=== PATIENT | female | born 1945 | race Caucasian/White ===

== ENCOUNTER → 2021-08-15 | Outpatient (CLI) | payer MEDICARE ==
[~2021-08-15] VITALS: Ht 154.9 cm; Wt 91.6 kg
== END ==
LOC: EROP 14:02
DX: U07.1 COVID-19 (principal); Z23 Encounter for immunization; E66.9 Obesity, unspecified; E11.9 Type 2 diabetes mellitus without complications; J45.909 Unspecified asthma, uncomplicated; J98.4 Other disorders of lung
CPT/HCPCS: 96365

== ENCOUNTER 2021-11-08 17:59 | Inpatient (IN) | payer MEDICARE ==
[~2021-11-08] VITALS: Ht 154.9 cm; Wt 87.1 kg
[2021-11-08 21:55] LABS: HEMOGLOBIN 11.2 gm/dl (12.3-15.3); WHITE BLOOD COUNT 19.2 K/UL (4.5-11.0)
[2021-11-09] MEDS ORDERED: PAIN RELIEF650 MG PO (00:02)
[2021-11-09] MEDS ORDERED: ASPIRIN81 MG PO (00:03)
[2021-11-09] MEDS ORDERED: PROVENTIL HFA6.7 GM INH (00:03)
[2021-11-09] MEDS ORDERED: ALBUTEROL2.5 MG/3 M INH (00:03)
[2021-11-09] MEDS ORDERED: FARXIGA10 MG PO (00:04)
[2021-11-09] MEDS ORDERED: LIPITOR80 MG PO (00:04)
[2021-11-09] MEDS ORDERED: PROZAC20 MG PO (00:05)
[2021-11-09] MEDS ORDERED: FEOSOL325 MG PO (00:05)
[2021-11-09] MEDS ORDERED: DIGOX125 MCG PO (00:05)
[2021-11-09] MEDS ORDERED: ZAROXOLYN/DIUL2.5 MG PO (00:06)
[2021-11-09] MEDS ORDERED: TOPROL XL25 MG PO (00:09)
[2021-11-09] MEDS ORDERED: MEXITIL 150 MG150 MG PO (00:09)
[2021-11-09] MEDS ORDERED: DULERA 200 MCG8.8 GM INH (00:09)
[2021-11-09] MEDS ORDERED: ENTRESTO 49 MG1 EACH PO (00:10)
[2021-11-09] MEDS ORDERED: NITROSTAT0.4 MG SL (00:10)
[2021-11-09] MEDS ORDERED: GAVILAX17 GM PO (00:10)
[2021-11-09] MEDS ORDERED: OMEPRAZOLE20 MG PO (00:10)
[2021-11-09] MEDS ORDERED: JANTOVEN1 MG PO (00:11)
[2021-11-09] MEDS ORDERED: SPIRIVA RESPIMAT4 GM INH (00:11)
[2021-11-09] MEDS ORDERED: TRELEGY ELLIPT1 EACH INH (00:13)
[2021-11-09] MEDS ORDERED: ALDACTONE25 MG PO (00:23)
[2021-11-09] MEDS ORDERED: GLUCOTROL5 MG PO (00:29)
[2021-11-09] MEDS ORDERED: ALLOPURINOL300 MG PO (00:32)
[2021-11-09 09:06] LABS: HEMOGLOBIN 10.9 gm/dl (12.3-15.3); RED BLOOD COUNT 3.64 M/UL (4.00-5.10); WHITE BLOOD COUNT 16.8 K/UL (4.5-11.0)
[2021-11-10 05:50] LABS: HEMOGLOBIN 11.3 gm/dl (12.3-15.3); RED BLOOD COUNT 3.69 M/UL (4.00-5.10); WHITE BLOOD COUNT 10.5 K/UL (4.5-11.0)
[2021-11-10 15:20] LABS: HEMOGLOBIN 10.6 gm/dl (12.3-15.3); RED BLOOD COUNT 3.52 M/UL (4.00-5.10); WHITE BLOOD COUNT 13.3 K/UL (4.5-11.0)
[2021-11-11 02:02] LABS: HEMOGLOBIN 10.9 gm/dl (12.3-15.3); RED BLOOD COUNT 3.59 M/UL (4.00-5.10); WHITE BLOOD COUNT 16.2 K/UL (4.5-11.0)
[2021-11-12 05:02] LABS: HEMOGLOBIN 11.2 gm/dl (12.3-15.3); RED BLOOD COUNT 3.73 M/UL (4.00-5.10); WHITE BLOOD COUNT 12.9 K/UL (4.5-11.0)
[2021-11-13 08:23] LABS: WHITE BLOOD COUNT 12.8 K/UL (4.5-11.0)
[2021-11-13 08:24] LABS: HEMOGLOBIN 10.7 gm/dl (12.3-15.3); RED BLOOD COUNT 3.54 M/UL (4.00-5.10)
[2021-11-14 10:56] LABS: HEMOGLOBIN 10.4 gm/dl (12.3-15.3); RED BLOOD COUNT 3.39 M/UL (4.00-5.10); WHITE BLOOD COUNT 11.9 K/UL (4.5-11.0)
[2021-11-15 05:11] LABS: HEMOGLOBIN 9.6 gm/dl (12.3-15.3); RED BLOOD COUNT 3.15 M/UL (4.00-5.10); WHITE BLOOD COUNT 10.5 K/UL (4.5-11.0)
[2021-11-17 03:58] LABS: HEMOGLOBIN 9.6 gm/dl (12.3-15.3); RED BLOOD COUNT 3.12 M/UL (4.00-5.10); WHITE BLOOD COUNT 10.5 K/UL (4.5-11.0)
[2021-11-18 05:17] LABS: HEMOGLOBIN 10.3 gm/dl (12.3-15.3); RED BLOOD COUNT 3.35 M/UL (4.00-5.10); WHITE BLOOD COUNT 12.6 K/UL (4.5-11.0)
--- NOTE | 2021-11-19 03:00 | NUR ---
CHANGING BED LINEN . RECTAL TUBE OUT. NEW RECTAL TUBE INSERTED WITHOUT DIFFICULTY.
[2021-11-20 04:24] LABS: HEMOGLOBIN 10.1 gm/dl (12.3-15.3); RED BLOOD COUNT 3.29 M/UL (4.00-5.10); WHITE BLOOD COUNT 12.2 K/UL (4.5-11.0)
[2021-11-23 05:07] LABS: RED BLOOD COUNT 3.22 M/UL (4.00-5.10); WHITE BLOOD COUNT 12.9 K/UL (4.5-11.0)
[2021-11-23] MEDS ORDERED: IPRAT-ALBUT 0.5-3 ML NEB (09:53)
[2021-11-23] MEDS ORDERED: BUMETANIDE1 MG PO (09:53)
[2021-11-23] MEDS ORDERED: ATORVASTATIN CA20 MG PO (09:53)
[2021-11-23] MEDS ORDERED: LOPRESSOR 25 MG25 MG PO (09:53)
--- NOTE | 2021-11-23 13:50 | NUR ---
REPORT CALLED TO TARIQ LYNN RN AT [facility], D/C SUMMARY FAXED ON REQUEST. FAMILY WILL BE HERE TO GET PATIENT AFTER 3PM.
== END 2021-11-23 15:45 | disposition home health service (06) | DRG 871 ==
LOC: MED SURG 4 19:51 → CCU 19:51 → MED SURG 4 11-20 10:01
PROVIDERS: Internal Medicine; Internal Medicine Cardiovascular Disease; Internal Medicine Critical Care Medicine; Internal Medicine Infectious Disease; Internal Medicine Pulmonary Disease; ADMIT Internal Medicine
PROC: 3E043XZ Introduction of Vasopressor into Central Vein, Percutaneous Approach (ICD-10-PCS; principal; 2021-11-08)
PROC: 5A1945Z Respiratory Ventilation, 24-96 Consecutive Hours (ICD-10-PCS; 2021-11-08)
PROC: 3E03329 Introduction of Other Anti-infective into Peripheral Vein, Percutaneous Approach (ICD-10-PCS; 2021-11-08)
PROC: 0BH17EZ Insertion of Endotracheal Airway into Trachea, Via Natural or Artificial Opening (ICD-10-PCS; 2021-11-08)
PROC: B24BZZZ Ultrasonography of Heart with Aorta (ICD-10-PCS; 2021-11-09)
PROC: 5A09357 Assistance with Respiratory Ventilation, Less than 24 Consecutive Hours, Continuous Positive Airway Pressure (ICD-10-PCS; 2021-11-14)
PROC: 5A09357 Assistance with Respiratory Ventilation, Less than 24 Consecutive Hours, Continuous Positive Airway Pressure (ICD-10-PCS; 2021-11-15)
PROC: 5A09357 Assistance with Respiratory Ventilation, Less than 24 Consecutive Hours, Continuous Positive Airway Pressure (ICD-10-PCS; 2021-11-16)
PROC: 5A09357 Assistance with Respiratory Ventilation, Less than 24 Consecutive Hours, Continuous Positive Airway Pressure (ICD-10-PCS; 2021-11-17)
PROC: 5A09357 Assistance with Respiratory Ventilation, Less than 24 Consecutive Hours, Continuous Positive Airway Pressure (ICD-10-PCS; 2021-11-17)
PROC: 5A09357 Assistance with Respiratory Ventilation, Less than 24 Consecutive Hours, Continuous Positive Airway Pressure (ICD-10-PCS; 2021-11-18)
PROC: 5A09357 Assistance with Respiratory Ventilation, Less than 24 Consecutive Hours, Continuous Positive Airway Pressure (ICD-10-PCS; 2021-11-19)
PROC: 5A09357 Assistance with Respiratory Ventilation, Less than 24 Consecutive Hours, Continuous Positive Airway Pressure (ICD-10-PCS; 2021-11-21)
PROC: 5A09357 Assistance with Respiratory Ventilation, Less than 24 Consecutive Hours, Continuous Positive Airway Pressure (ICD-10-PCS; 2021-11-22)
PROC: 5A09357 Assistance with Respiratory Ventilation, Less than 24 Consecutive Hours, Continuous Positive Airway Pressure (ICD-10-PCS; 2021-11-22)
PROC: 5A09357 Assistance with Respiratory Ventilation, Less than 24 Consecutive Hours, Continuous Positive Airway Pressure (ICD-10-PCS; 2021-11-23)
DX: A41.9 Sepsis, unspecified organism (principal); J96.21 Acute and chronic respiratory failure with hypoxia; J96.22 Acute and chronic respiratory failure with hypercapnia; R65.21 Severe sepsis with septic shock; R57.0 Cardiogenic shock; J15.9 Unspecified bacterial pneumonia; I50.43 Acute on chronic combined systolic (congestive) and diastolic (congestive) heart failure; I13.0 Hypertensive heart and chronic kidney disease with heart failure and stage 1 through stage 4 chronic kidney disease, or unspecified chronic kidney disease; J44.1 Chronic obstructive pulmonary disease with (acute) exacerbation; I48.20 Chronic atrial fibrillation, unspecified; N17.9 Acute kidney failure, unspecified; J44.0 Chronic obstructive pulmonary disease with (acute) lower respiratory infection; N39.0 Urinary tract infection, site not specified; Z99.11 Dependence on respirator [ventilator] status; Z66 Do not resuscitate; Z20.822 Contact with and (suspected) exposure to COVID-19; E11.22 Type 2 diabetes mellitus with diabetic chronic kidney disease; N18.30 Chronic kidney disease, stage 3 unspecified; L89.156 Pressure-induced deep tissue damage of sacral region; I27.20 Pulmonary hypertension, unspecified; F41.9 Anxiety disorder, unspecified; F32.A Depression, unspecified; R79.1 Abnormal coagulation profile; I95.2 Hypotension due to drugs; T42.75XA Adverse effect of unspecified antiepileptic and sedative-hypnotic drugs, initial encounter; I08.1 Rheumatic disorders of both mitral and tricuspid valves; Z79.01 Long term (current) use of anticoagulants; I25.5 Ischemic cardiomyopathy; R53.81 Other malaise; Z74.01 Bed confinement status; Z95.810 Presence of automatic (implantable) cardiac defibrillator; Z99.81 Dependence on supplemental oxygen; Z79.82 Long term (current) use of aspirin; Z87.891 Personal history of nicotine dependence; Z95.2 Presence of prosthetic heart valve; Z86.711 Personal history of pulmonary embolism; Z88.5 Allergy status to narcotic agent; Z91.041 Radiographic dye allergy status; Z98.51 Tubal ligation status; Z90.49 Acquired absence of other specified parts of digestive tract
CPT/HCPCS: ECHO; 36415; 36600; 71045; 80048; 80053; 80061; 80202; 81001; 82550; 82553; 82803; 82962; 83036; 83605; 83735; 83880; 84100; 84439; 84443; 84484; 84550; 85025; 85027; 85610; 85652; 85730; 86140; 87040; 87070; 87081; 87086; 87205; 92526; 92610; 93005; 93306; 94002; 94003; 94640; 94660; 94664; 94760; 97110-GP-CQ; 97116; 97116-GP-CQ; 97162; 97530; 97530-GP-CQ; A6212; C9113; J1250; J1644; J1650; J2185; J2250; J2920; J3370; J3475; J7030; J7070

== ENCOUNTER 2022-01-13 21:39 | Inpatient (IN) | payer MEDICARE ==
[~2022-01-13] VITALS: Ht 154.9 cm; Wt 87.5 kg
[~2022-01-13 21:39] MED LIST: ALBUTEROL2.5 MG/3 M INH; ALDACTONE25 MG PO; ALLOPURINOL300 MG PO; ATORVASTATIN CA20 MG PO; BUMETANIDE1 MG PO; CIPRO250 MG PO; DIGOX125 MCG PO; DULERA 200 MCG8.8 GM INH; ENTRESTO 49 MG1 EACH PO; FARXIGA10 MG PO; FEOSOL325 MG PO; GAVILAX17 GM PO; GLUCOTROL5 MG PO; IPRAT-ALBUT 0.5-3 ML NEB; LIPITOR80 MG PO; LOPRESSOR 25 MG25 MG PO; MEXITIL 150 MG150 MG PO; OMEPRAZOLE20 MG PO; PAIN RELIEF650 MG PO; PROVENTIL HFA6.7 GM INH; PROZAC20 MG PO; SPIRIVA RESPIMAT4 GM INH; TOPROL XL25 MG PO; TRELEGY ELLIPT1 EACH INH; WARFARIN SODIUM1 MG PO; ZAROXOLYN/DIUL2.5 MG PO
[2022-01-14] MEDS ORDERED: ASPIRIN EC81 MG PO (00:03)
[2022-01-14] MEDS ORDERED: NITROSTAT0.4 MG SL (00:10)
[2022-01-14 12:05] LABS: HEMOGLOBIN 8.6 gm/dl (12.3-15.3); RED BLOOD COUNT 2.85 M/UL (4.00-5.10); WHITE BLOOD COUNT 5.8 K/UL (4.5-11.0)
[2022-01-14] MEDS ORDERED: BUMETANIDE1 MG PO (13:15)
[2022-01-14] MEDS ORDERED: IPRAT-ALBUT 0.5-3 ML INH (13:17)
[2022-01-14] MEDS ORDERED: METOPROLOL SUCC25 MG PO (13:19)
[2022-01-14] MEDS ORDERED: VERQUVO2.5 MG PO (13:21)
[2022-01-14] MEDS ORDERED: ATORVASTATIN CA40 MG PO (14:00)
--- NOTE | 2022-01-14 14:04 | NUR ---
01/14/[address] VALLEJO OF TRANSFER PATIENT ARRIVAL, NO ANSWER UNABLE TO LEAVE A VOICEMAIL
[2022-01-15 09:33] LABS: HEMOGLOBIN 8.2 gm/dl (12.3-15.3); RED BLOOD COUNT 2.68 M/UL (4.00-5.10); WHITE BLOOD COUNT 6.5 K/UL (4.5-11.0)
[2022-01-16 07:00] LABS: HEMOGLOBIN 7.8 gm/dl (12.3-15.3); RED BLOOD COUNT 2.56 M/UL (4.00-5.10)
[2022-01-16 07:01] LABS: WHITE BLOOD COUNT 3.1 K/UL (4.5-11.0)
[2022-01-17 06:33] LABS: RED BLOOD COUNT 2.9 M/UL (4.00-5.10); WHITE BLOOD COUNT 9.7 K/UL (4.5-11.0)
[2022-01-17] MEDS ORDERED: METOPROLOL SUCC25 MG PO (14:45)
== END 2022-01-17 17:35 | disposition home or self-care (01) | DRG 682 ==
LOC: PROG CARE 21:39 → M/S 01-14 08:30 → PROG CARE 01-14 08:30 → M/S 01-15 15:24
PROVIDERS: Internal Medicine; ADMIT Internal Medicine
PROC: B24BZZZ Ultrasonography of Heart with Aorta (ICD-10-PCS; principal; 2022-01-15)
DX: N17.9 Acute kidney failure, unspecified (principal); L89.154 Pressure ulcer of sacral region, stage 4; Z20.822 Contact with and (suspected) exposure to COVID-19; I13.0 Hypertensive heart and chronic kidney disease with heart failure and stage 1 through stage 4 chronic kidney disease, or unspecified chronic kidney disease; I50.22 Chronic systolic (congestive) heart failure; I48.20 Chronic atrial fibrillation, unspecified; N30.00 Acute cystitis without hematuria; E11.22 Type 2 diabetes mellitus with diabetic chronic kidney disease; J44.9 Chronic obstructive pulmonary disease, unspecified; I25.5 Ischemic cardiomyopathy; I95.2 Hypotension due to drugs; N18.30 Chronic kidney disease, stage 3 unspecified; E86.0 Dehydration; T50.995A Adverse effect of other drugs, medicaments and biological substances, initial encounter; D63.1 Anemia in chronic kidney disease; Z79.01 Long term (current) use of anticoagulants; Z95.2 Presence of prosthetic heart valve; Z95.810 Presence of automatic (implantable) cardiac defibrillator; Z79.82 Long term (current) use of aspirin; Z90.49 Acquired absence of other specified parts of digestive tract; Z98.51 Tubal ligation status; Z88.5 Allergy status to narcotic agent; Z91.041 Radiographic dye allergy status
CPT/HCPCS: ECHO; 36415; 71045; 80048; 80053; 81001; 82728; 82962; 83036; 83540; 83550; 83605; 83735; 84100; 85025; 85610; 85652; 85730; 86140; 93306; 94640; 94664; 94760; J0696; J1756; J2248; J2920